=== PATIENT | male | born 1965 | race African-American/Black ===

== ENCOUNTER 2019-08-31 07:59 | Inpatient (IN) | payer BC, OTHER ==
[~2019-08-31] VITALS: Ht 182.9 cm; Wt 102.1 kg
[2019-08-31] VITALS (26 sets, daily range): BP systolic 130–206; BP diastolic 50–119
[~2019-08-31 07:59] MED LIST: AMLO10TA80 PO; ASPI-1393 PO; ATOR20TA65 PO; LISI-604 PO; METO25TA6 PO
[2019-08-31] MEDS ORDERED: LABETALOL 5MG/ML SYR 20 MG/4 ML SYRINGE IV ONE (08:15)
[2019-08-31 08:45] LABS: BASOPHILS % 0.8 % (0.0-2.0); EOSINOPHILS % 2.2 % (0.0-5.0); HEMATOCRIT. 37.4 % (42.0-52.0); HEMOGLOBIN. 12.7 g/dL (14.0-18.0); LYMPHOCYTES % 18.1 % (20.0-50.0); MEAN CORPUSCULAR HEMOGLOBIN 30.1 pg (28.0-32.0); MEAN CORPUSCULAR VOLUME 88.6 fL (80.0-94.0); MEAN PLATELET VOLUME 8.2 fl (7.4-10.4); MONOCYTES % 5.5 % (2.0-8.0); NEUTROPHILS % 73.4 % (40.0-76.0); PLATELET 211 x1000/uL (130-400); RED BLOOD CELL COUNT 4.22 mill/uL (4.7-6.1); RED CELL DISTRIBUTION WIDTH 14.6 % (11.6-14.6)
[2019-08-31 08:52] LABS: CHLORIDE 103 mEq/L (98-107)
[2019-08-31 08:53] LABS: PROTHROMBIN TIME 10.7 sec (9.6-11.0)
[2019-08-31 08:56] LABS: ETHANOL BLOOD < 10 mg/dL
[2019-08-31 08:59] LABS: LDL CHOLESTEROL 135 mg/dL (5-100)
[2019-08-31] MEDS: ASPIRIN 325MG TABLET PO ONE ×2 (09:15→09:27)
[2019-08-31] MEDS ORDERED: KCL 20MEQ/100ML PREMIX 100 ML IV ONE (09:15)
[2019-08-31] MEDS ORDERED: ACETAMINOPHEN 325MG TABLET PO PRN (09:45)
[2019-08-31] MEDS ORDERED: ONDANSETRON HCL 4MG/2ML INJ IV PRN (09:45)
[2019-08-31] MEDS: ENALAPRIL 2.5MG/2ML VIAL 2ML IV ONE ×2 (10:11→12:12)
[2019-08-31] MEDS: POTASSIUM CHLORIDE INJ 40 MEQ in DEXT 5% WATER 250 ML IV SCH ×2 (10:14→14:34)
[2019-08-31] MEDS ORDERED: FUROSEMIDE 40MG/4ML VIAL IVP SCH (10:15)
[2019-08-31] MEDS: CLONIDINE 0.1MG TABLET PO PRN (11:11)
[2019-08-31] MEDS: HYDRALAZINE 20MG/ML VIAL IV PRN ×3 (11:33→22:17)
[2019-08-31] MEDS ORDERED: ENALAPRIL 1.25MG/ML VIAL 1ML IV SCH (12:00)
[2019-08-31] MEDS ORDERED: IOHEXOL-350 100 ML BOTTLE ONE (14:57)
[2019-08-31] MEDS: LOSARTAN POTASSIUM 100 MG TABLET PO SCH (16:37)
[2019-08-31] MEDS: CLONIDINE 0.1MG TABLET PO NR ×2 (16:38→18:18)
[2019-08-31] MEDS: ENOXAPARIN 40MG/0.4ML SYR SUBCUT SCH (17:30)
[2019-08-31] MEDS: ATORVASTATIN CALCIUM 40MG TABLET PO SCH (20:11)
[2019-08-31] MEDS: AMLODIPINE 5MG TABLET PO SCH (20:11)
[2019-08-31 22:47] LABS: CLARITY URINE CLEAR (CLEAR); COLOR URINE YELLOW (YELLOW); KETONES URINE NEGATIVE (NEGATIVE); LEUKOCYTE ESTERASE URINE NEGATIVE (NEGATIVE); NITRITE URINE NEGATIVE (NEGATIVE); OCCULT BLOOD URINE NEGATIVE (NEGATIVE); PH URINE 7.5 (4.5-8.0); PROTEIN URINE NEGATIVE (NEGATIVE); SPECIFIC GRAVITY URINE 1.013 (1.005-1.030); UROBILINOGEN URINE 0.2 E.U./dL (0.2-1.0)
[2019-08-31 22:59] LABS: *AMPHETAMINES SCREEN URINE NEGATIVE (NEGATIVE); METHADONE URINE SCREEN NEGATIVE (NEGATIVE); OPIATES URINE SCREEN NEGATIVE (NEGATIVE); PHENCYCLIDINE URINE SCREEN NEGATIVE (NEGATIVE)
[2019-08-31 23:00] LABS: *BARBITURATES SCREEN URINE NEGATIVE (NEGATIVE); *BENZODIAZEPINES SCREEN URINE NEGATIVE (NEGATIVE); *COCAINE SCREEN URINE NEGATIVE (NEGATIVE); CANNABINOID URINE SCREEN NEGATIVE (NEGATIVE)
[2019-09-01] VITALS (58 sets, daily range): BP systolic 132–224; BP diastolic 53–138
[2019-09-01 05:49] LABS: BASOPHILS % 0.2 % (0.0-2.0); HEMATOCRIT. 36.6 % (42.0-52.0); HEMOGLOBIN. 12.6 g/dL (14.0-18.0); LYMPHOCYTES % 8.5 % (20.0-50.0); MEAN CORPUSCULAR HEMOGLOBIN 30.6 pg (28.0-32.0); MEAN CORPUSCULAR VOLUME 88.8 fL (80.0-94.0); MEAN PLATELET VOLUME 8.4 fl (7.4-10.4); MONOCYTES % 4.5 % (2.0-8.0); NEUTROPHILS % 86.8 % (40.0-76.0); PLATELET 206 x1000/uL (130-400); RED BLOOD CELL COUNT 4.12 mill/uL (4.7-6.1); RED CELL DISTRIBUTION WIDTH 14.8 % (11.6-14.6)
[2019-09-01 06:06] LABS: CHLORIDE 105 mEq/L (98-107)
[2019-09-01] MEDS: LOSARTAN POTASSIUM 100 MG TABLET PO SCH (08:08)
[2019-09-01] MEDS: ENOXAPARIN 40MG/0.4ML SYR SUBCUT SCH (08:08)
[2019-09-01] MEDS: AMLODIPINE 5MG TABLET PO SCH ×2 (08:09→20:30)
[2019-09-01] MEDS ORDERED: POTASSIUM CHLORIDE INJ 40 MEQ in DEXT 5% WATER 250 ML IV SCH (09:00)
[2019-09-01] MEDS ORDERED: CLOPIDOGREL 75MG TABLET PO SCH (09:00)
[2019-09-01] MEDS: HYDRALAZINE 20MG/ML VIAL IV PRN ×2 (10:48→17:30)
[2019-09-01] MEDS ORDERED: POTASSIUM CHLORIDE 20MEQ TABLET SR PO NR (12:45)
[2019-09-01 13:12] LABS: VITAMIN B12 SERUM 413 pg/mL (211-911)
[2019-09-01 13:24] LABS: FERRITIN 126 ng/mL (22-322)
[2019-09-01] MEDS: CLONIDINE 0.1MG TABLET PO PRN (13:26)
[2019-09-01] MEDS: LABETALOL HCL 20MG/4ML CARPUJECT IV PRN (19:43)
[2019-09-01] MEDS: ATORVASTATIN CALCIUM 40MG TABLET PO SCH (20:29)
[2019-09-02] VITALS (38 sets, daily range): BP systolic 141–212; BP diastolic 70–125
[2019-09-02] MEDS: CLONIDINE 0.1MG TABLET PO PRN ×2 (00:06→11:09)
[2019-09-02] MEDS: LABETALOL HCL 20MG/4ML CARPUJECT IV PRN (01:34)
[2019-09-02 05:43] LABS: BASOPHILS % 0.2 % (0.0-2.0); EOSINOPHILS % 0.3 % (0.0-5.0); HEMATOCRIT. 36.4 % (42.0-52.0); HEMOGLOBIN. 12.6 g/dL (14.0-18.0); LYMPHOCYTES % 14.7 % (20.0-50.0); MEAN CORPUSCULAR HEMOGLOBIN 30.7 pg (28.0-32.0); MEAN CORPUSCULAR VOLUME 88.7 fL (80.0-94.0); MEAN PLATELET VOLUME 8.6 fl (7.4-10.4); MONOCYTES % 6.6 % (2.0-8.0); NEUTROPHILS % 78.2 % (40.0-76.0); PLATELET 216 x1000/uL (130-400); RED CELL DISTRIBUTION WIDTH 14.8 % (11.6-14.6)
[2019-09-02 05:56] LABS: CHLORIDE 103 mEq/L (98-107)
[2019-09-02] MEDS ORDERED: POTASSIUM CHLORIDE 20MEQ TABLET SR PO NR ×2 (07:15→11:15)
[2019-09-02] MEDS ORDERED: THIAMINE HCL 100MG TABLET PO SCH (07:45)
[2019-09-02] MEDS ORDERED: FOLIC ACID 1MG TABLET PO SCH (07:45)
[2019-09-02] MEDS: MULTIVITAMINS,THER W-MINERALS TABLET PO SCH (08:21)
[2019-09-02] MEDS: FOLIC ACID 1MG TABLET PO SCH (08:22)
[2019-09-02] MEDS: LOSARTAN POTASSIUM 100 MG TABLET PO SCH (08:22)
[2019-09-02] MEDS: AMLODIPINE 5MG TABLET PO SCH ×2 (08:22→21:46)
[2019-09-02] MEDS: ENOXAPARIN 40MG/0.4ML SYR SUBCUT SCH (08:25)
[2019-09-02] MEDS: THIAMINE HCL 100MG TABLET PO SCH (08:25)
[2019-09-02] MEDS ORDERED: POTASSIUM CHLORIDE INJ 40 MEQ in DEXT 5% WATER 250 ML IV SCH ×3 (09:00→13:00)
[2019-09-02] MEDS: POTASSIUM CHLORIDE 20MEQ TABLET SR PO SCH (12:04)
[2019-09-02] MEDS: HYDRALAZINE 20MG/ML VIAL IV SCH ×2 (12:05→17:40)
[2019-09-02] MEDS: HYDRALAZINE HCL 50MG TABLET PO SCH ×2 (15:04→23:14)
[2019-09-02] MEDS: ATORVASTATIN CALCIUM 40MG TABLET PO SCH (21:46)
[2019-09-03] VITALS (13 sets, daily range): BP systolic 157–192; BP diastolic 9–113
[2019-09-03] MEDS: HYDRALAZINE 20MG/ML VIAL IV SCH ×4 (01:07→18:05)
[2019-09-03] MEDS: HYDRALAZINE HCL 50MG TABLET PO SCH (05:54)
[2019-09-03] MEDS: ENOXAPARIN 40MG/0.4ML SYR SUBCUT SCH (08:48)
[2019-09-03] MEDS: LOSARTAN POTASSIUM 100 MG TABLET PO SCH (08:48)
[2019-09-03] MEDS: MULTIVITAMINS,THER W-MINERALS TABLET PO SCH (08:48)
[2019-09-03] MEDS: POTASSIUM CHLORIDE 20MEQ TABLET SR PO SCH (08:48)
[2019-09-03] MEDS: FOLIC ACID 1MG TABLET PO SCH (08:49)
[2019-09-03] MEDS: THIAMINE HCL 100MG TABLET PO SCH (08:49)
[2019-09-03] MEDS: AMLODIPINE 5MG TABLET PO SCH (08:49)
[2019-09-03] MEDS ORDERED: POTASSIUM CHLORIDE INJ 40 MEQ in DEXT 5% WATER 250 ML IV NR ×2 (12:00→18:30)
[2019-09-03] MEDS: HYDRALAZINE HCL 100MG TABLET PO SCH ×2 (14:00→21:36)
[2019-09-03 15:37] LABS: CHLORIDE 103 mEq/L (98-107)
[2019-09-03] MEDS ORDERED: POTASSIUM CHLORIDE 20MEQ TABLET SR PO SCH ×2 (17:00)
[2019-09-03] MEDS: APIXABAN 5 MG TABLET PO SCH (18:05)
[2019-09-03] MEDS: SPIRONOLACTONE 25MG TABLET PO SCH (18:05)
[2019-09-03] MEDS ORDERED: ENOXAPARIN 30MG/0.3ML SYR SUBCUT SCH (21:00)
[2019-09-03] MEDS: ATORVASTATIN CALCIUM 40MG TABLET PO SCH (21:36)
[2019-09-03] MEDS: CARVEDILOL 12.5MG TABLET PO SCH (21:36)
[2019-09-04] VITALS (17 sets, daily range): BP systolic 125–175; BP diastolic 60–110
[2019-09-04] MEDS: HYDRALAZINE 20MG/ML VIAL IV SCH ×2 (01:05→06:18)
[2019-09-04 06:16] LABS: EOSINOPHILS % 2.3 % (0.0-5.0); HEMATOCRIT. 39.9 % (42.0-52.0); HEMOGLOBIN. 13.7 g/dL (14.0-18.0); LYMPHOCYTES % 19.3 % (20.0-50.0); MEAN CORPUSCULAR HEMOGLOBIN 30.1 pg (28.0-32.0); MEAN CORPUSCULAR VOLUME 87.8 fL (80.0-94.0); MEAN PLATELET VOLUME 8.2 fl (7.4-10.4); MONOCYTES % 5.8 % (2.0-8.0); NEUTROPHILS % 71.6 % (40.0-76.0); PLATELET 257 x1000/uL (130-400); RED BLOOD CELL COUNT 4.54 mill/uL (4.7-6.1); RED CELL DISTRIBUTION WIDTH 14.3 % (11.6-14.6)
[2019-09-04] MEDS: HYDRALAZINE HCL 100MG TABLET PO SCH ×3 (06:18→22:26)
[2019-09-04 06:24] LABS: CHLORIDE 105 mEq/L (98-107)
[2019-09-04 06:32] LABS: PHOSPHORUS 2.5 mg/dL (2.5-4.9)
[2019-09-04] MEDS: POTASSIUM CHLORIDE 20MEQ TABLET SR PO SCH ×3 (08:32→17:19)
[2019-09-04] MEDS: MULTIVITAMINS,THER W-MINERALS TABLET PO SCH (08:32)
[2019-09-04] MEDS: APIXABAN 5 MG TABLET PO SCH ×2 (08:33→17:20)
[2019-09-04] MEDS: LOSARTAN POTASSIUM 100 MG TABLET PO SCH (08:33)
[2019-09-04] MEDS: SPIRONOLACTONE 25MG TABLET PO SCH ×2 (08:35→17:18)
[2019-09-04] MEDS: DOXAZOSIN MESYLATE 2MG TABLET PO SCH ×2 (08:35→20:48)
[2019-09-04] MEDS: THIAMINE HCL 100MG TABLET PO SCH (08:37)
[2019-09-04] MEDS: FOLIC ACID 1MG TABLET PO SCH (08:37)
[2019-09-04] MEDS: CARVEDILOL 12.5MG TABLET PO SCH ×2 (08:37→20:49)
[2019-09-04] MEDS: CLONIDINE 0.1MG TABLET PO SCH ×2 (16:23→22:26)
[2019-09-04] MEDS ORDERED: THIA100T72 PO (17:30)
[2019-09-04] MEDS ORDERED: POTA20TA82 PO (17:30)
[2019-09-04] MEDS ORDERED: CLON0.1T14 PO (17:30)
[2019-09-04] MEDS ORDERED: SPIR25TA PO (17:30)
[2019-09-04] MEDS ORDERED: APIX5TAB PO (17:30)
[2019-09-04] MEDS ORDERED: COR12 PO (17:30)
[2019-09-04] MEDS ORDERED: LIP40 PO (17:30)
[2019-09-04] MEDS ORDERED: LOSA100T3 PO (17:30)
[2019-09-04] MEDS ORDERED: DOXA2TAB PO (17:30)
[2019-09-04] MEDS ORDERED: HYDR100T26 PO (17:30)
[2019-09-04] MEDS ORDERED: FOLI-43 PO (17:30)
[2019-09-04] MEDS: CLONIDINE 0.1MG TABLET PO PRN (19:02)
[2019-09-04] MEDS: ATORVASTATIN CALCIUM 40MG TABLET PO SCH (20:48)
== END 2019-09-05 00:51 | DRG 64 ==
LOC: ER 08:34 → MICUSO 09:11 → EDBEDREQSVC 09:12 → EDBEDREQ 09:14 → ENRESERV 12:07 → 3WST 09-02 12:52
PROVIDERS: ADMIT Internal Medicine; ATTEND Internal Medicine
PROC: 4A00X4Z Measurement of Central Nervous Electrical Activity, External Approach (ICD-10-PCS; principal; 2019-09-02)
DX: I63.512 Cerebral infarction due to unspecified occlusion or stenosis of left middle cerebral artery (principal); G93.41 Metabolic encephalopathy; I50.42 Chronic combined systolic (congestive) and diastolic (congestive) heart failure; I16.1 Hypertensive emergency; I42.0 Dilated cardiomyopathy; I13.0 Hypertensive heart and chronic kidney disease with heart failure and stage 1 through stage 4 chronic kidney disease, or unspecified chronic kidney disease; G81.91 Hemiplegia, unspecified affecting right dominant side; R41.4 Neurologic neglect syndrome; E87.6 Hypokalemia; E78.5 Hyperlipidemia, unspecified; E66.9 Obesity, unspecified; N18.2 Chronic kidney disease, stage 2 (mild); D64.9 Anemia, unspecified; R47.1 Dysarthria and anarthria; E78.00 Pure hypercholesterolemia, unspecified; R13.10 Dysphagia, unspecified; R47.01 Aphasia; Z87.891 Personal history of nicotine dependence; Z79.82 Long term (current) use of aspirin; Z79.899 Other long term (current) drug therapy; Z71.3 Dietary counseling and surveillance; Z68.30 Body mass index [BMI] 30.0-30.9, adult
CPT/HCPCS: 36415; 70496; 70498; 70551; 71045; 80048; 80061; 80305; 80320; 81003; 82140; 82607; 82728; 82962; 83036; 83540; 83550; 83721; 83735; 83880; 83930; 83935; 84100; 84132; 84133; 84443; 84484; 92610; 93005; 93306; 95816; 96365; 96375; 97110; 97112; 97116; 97162; 97166; 97535; 99291; J0360; J1650; J1940; J2405; J3480; J3490; J7060; Q9967; G0480